=== PATIENT | male | born 1980 | race Caucasian/White ===

== ENCOUNTER 2025-03-20 15:11 | Emergency (ER) | payer OTHER ==
[~2025-03-20] VITALS: Ht 177.8 cm; Wt 133.8 kg
[2025-03-20 15:19] VITALS: TEMP 97.7
[2025-03-20] MEDS ORDERED: IBUPROFEN 600 MG TABLET ONE (15:49)
[2025-03-20] MEDS: IBUPROFEN 600 MG TABLET PO ONE (15:50)
[2025-03-20] MEDS ORDERED: HYDR-3973 PO ×2 (17:59→18:01)
[2025-03-20 18:47] VITALS: BP 135/89; O2SAT 100
== END 2025-03-20 18:12 | disposition home or self-care (01) ==
LOC: ER 15:15
DX: S52.591A Other fractures of lower end of right radius, initial encounter for closed fracture (principal); V43.02XA Car driver injured in collision with other type car in nontraffic accident, initial encounter; Y93.89 Activity, other specified; Y92.415 Exit ramp or entrance ramp of street or highway as the place of occurrence of the external cause; Y99.8 Other external cause status
CPT/HCPCS: 73110; 73130-TC